=== PATIENT | female | born 2000 | race African-American/Black ===

== ENCOUNTER 2024-03-23 14:19 | Emergency (ER) | payer OTHER ==
[~2024-03-23] VITALS: Ht 165.1 cm; Wt 74.5 kg
[2024-03-23 14:26] VITALS: BP 119/81; TEMP 98.5
[2024-03-23 16:33] LABS: COLLECTION METHOD CLEAN CATCH
[2024-03-23 16:45] LABS: URINE APPEARANCE CLOUDY (CLEAR/HAZY); URINE BLOOD 2+ (NEGATIVE); URINE COLOR ORANGE (YELLOW); URINE GLUCOSE NEGATIVE (NEGATIVE); URINE KETONE NEGATIVE (NEGATIVE); URINE NITRATE POSITIVE (NEGATIVE); URINE PROTEIN(semi-quant) 1+ (NEGATIVE)
[2024-03-23 17:07] VITALS: PULSE 77
== END 2024-03-23 17:09 | disposition home or self-care (01) ==
LOC: COL.ER 14:19
PROVIDERS: Emergency Medicine
DX: N39.0 Urinary tract infection, site not specified (principal)